=== PATIENT | male | born 1935 | race Caucasian/White ===

== ENCOUNTER → 2018-04-04 | Outpatient (CLI) | payer OTHER, MEDICARE | LOC: MRI 09:05 | DX: S46.912D Strain of unspecified muscle, fascia and tendon at shoulder and upper arm level, left arm, subsequent encounter (principal); K76.0 Fatty (change of) liver, not elsewhere classified; M25.411 Effusion, right shoulder ==

== ENCOUNTER 2021-02-28 12:00 | Inpatient (IN) | payer OTHER, MEDICARE ==
[~2021-02-28] VITALS: Ht 180.3 cm; Wt 70.1 kg
--- NOTE | ~2021-02-28 | EMS ---
[address] [address] EMS Patient Care Report Name: STEPHANIE LIMON Room #: 170-4 ADM IN M.R.#: [id number] Admission: 02/28/21 Attend Phys: Bhavya Gibson MD Discharge: Date of : 37 Report #: [id number] THIS REPORT FOR: //name// Report Transmitted: 02/28/2021 15:32 EMS Care Summary [place], [place]/[facility] Incident [id number] @ 02/28/2021 11:10 Incident Location [address] [place], [place] [id number] Patient STEHPANIE LIMON Male, 85 Years 1935 Patient Address [address] [place], [place] [id number] Patient History Stroke/CVA,Back Surgery, Patient Allergies No known allergies, Patient Medications Atorvastatin, Carvedilol, Pradaxa, Vitamin D, Acetaminophen, Tamsulosin, Chief Complaint BACK PAIN Disposition Transported No Lights/[place] Dispatch Reason Back Pain (Non-Traumatic) Transported To [facility] Narrative M30 RESPONDED TO A NON EMERGENCY BACK PAIN. M30 ARRIVED ON SCENE TO FIND PT SITTING UP IN HIS BED. PT WAS COMPLAINING OF LOWER BACK PAIN THAT HAD BEEN OFF AND ON FOR TWO WEEKS. PT STATED HE WOULD LIKE TO GET TRANSPORTED TO [facility] FOR PAIN MANAGEMENT. PT WAS ASSESSED AND DEEMED BLS. PT WAS ASSISTED IN [address] [address] EMS Patient Care Report Name: STEPHANIE LIMON Room #: 170-4 ADM IN M.R.#: [id number] Admission: 02/28/21 Attend Phys: Bhavya Gibson MD Discharge: Date of : 37 Report #: [id number] WALKING TO [facility]ER [facility]. PT WAS ASSISTED ONTO STRETCHER AND SECURED W/ SEABELTS AND HANDRAILS UP. PT WAS TRANSFERED INTO AMBULANCE. PT WAS REASSESSED WITH NO CHANGES. DURING TRANSPORT [facility] [place] [place] HIGH VOLUME STATUS FROM [facility]. DESTINATION WAS CHANGED TO [facility] BY PTS CHOICE. PT WAS REASSESED DURING TRANSPORT WITH NO CHANGES. PT WAS UNLOADED SECURE TO THE STRETCHER AND TRANSFERED INTO HOSPITAL. PT WAS LIFTED AND MOVED ONTO BED IN ER #4 AND LEFT SECURED TO BED WITH HANDRAILS UP IN A POSITION OF COMFORT. PT WAS RECIEVED BY [facility] NURSING STAFF. Initial Vitals @11:51P: 54,R: 18,BP: 154/74,Pain: 4/10,GCS: 15,CO: 1,SpO2: 99,Revised Trauma: 12, @11:42P: 54,R: 16,BP: 131/66,Pain: 4/10,GCS: 15,SpO2: 98,Revised Trauma: 12, Assessments @11:51MENTAL:No Abnormalities,SKIN:No Abnormalities,HEENT:Head/Face: No Abnormalities,Eyes: No Abnormalities,Neck/Airway: No Abnormalities,LUNG SOUNDS:General: No Abnormalities,Left Upper: No Abnormalities,Right Upper: No Abnormalities,Left Lower: No Abnormalities,Right Lower: No Abnormalities,ABDOMEN:General: No Abnormalities,Left Upper: No Abnormalities,Right Upper: No Abnormalities,Left Lower: No Abnormalities,Right Lower: No Abnormalities,PELVIS//GI:No Abnormalities,EXTREMITIES:Left Arm: No Abnormalities,Right Arm: No Abnormalities,Left Leg: No Abnormalities,Right Leg: No Abnormalities,PULSE:NEURO:No Abnormalities, Impression Back Pain Procedures @11:50ALS AssessmentSucceeded@11:50BLS AssessmentResponse: Unchanged Timeline 11:05,Call Received 11:05,Dispatch Notified 11:10,Dispatched 11:12,En Route 11:31,On Scene 11:32,At Patient 11:42,BP: 131/66 M,PULSE: 54,RR: 16 R,SPO2: 98 Ox,ETCO2: ,BG: ,PAIN: 4,GCS: 15, 11:45,Depart Scene 11:50,ALS Assessment,Succeeded, 11:50,BLS Assessment,Response: Unchanged 11:51,BP: 154/74 M,PULSE: 54,RR: 18 R,SPO2: 99 Ox,ETCO2: ,BG: ,PAIN: 4,GCS: 15, 11:54,At Destination 12:17,Call Closed [facility] [address] [place] [address] EMS Patient Care Report Name: STEPHANIE LIMON Room #: 170-4 ADM IN M.R.#: [id number] Admission: 02/28/21 Attend Phys: Bhavya Gibson MD Discharge: Date of : 37 Report #: [id number] Disclaimer v1.1 Copyright [employer] This EMS Care Summary contains data elements from the applicable legal record (which may be displayed differently). It is designed to provide pertinent information for the following purposes: continuity of care, clinical quality, and state data reporting. The complete legal record is available to ED staff and administrators of the receiving hospital in [employer] Patient Tracker. All data is provided "as is."
[2021-02-28 12:00] VITALS: BP 161/67
[2021-02-28 15:25] LABS: MCH 29.7 pg (26.0-34.0); MCHC 33.2 g/dL (28.0-37.0); MCV 89.2 fL (80.0-100.0); RBC 4.38 mil/uL (4.50-6.00); RDW 14.2 % (10.5-14.5); WBC 8.9 thou/uL (4.0-11.0)
[2021-02-28 15:29] LABS: CALCIUM 9.1 mg/dL (8.5-10.1); CREATININE 1.2 mg/dL (0.7-1.3)
[2021-02-28 15:35] LABS: ALBUMIN 3.9 g/dL (3.4-5.0); TOTAL BILIRUBIN 0.6 mg/dL (0.2-1.0); TOTAL PROTEIN 7.2 g/dL (6.4-8.2)
[2021-02-28 18:04] VITALS: BP 148/93
[2021-02-28 18:37] VITALS: BP 167/61
[2021-02-28] MEDS ORDERED: PRADAXA150 MG PO (20:05)
[2021-02-28] MEDS ORDERED: CARVEDILOL12.5 MG PO (20:07)
[2021-02-28] MEDS ORDERED: VITAMIN D310 MC1 PO (20:08)
[2021-02-28] MEDS ORDERED: LIPITOR 40 MG T40 M1 PO (20:08)
[2021-02-28] MEDS ORDERED: SUPER THERAVIT1 EACH PO (20:09)
[2021-02-28] MEDS ORDERED: FISH OIL 1,001000 M2 PO (20:09)
[2021-02-28] MEDS ORDERED: TYLENOL325 MG PO (20:10)
--- NOTE | 2021-03-01 03:35 | NUR ---
PT ADMITTED AT THE START OF SHIFT. HE IS ALERT AND ORIENTED. INTRACTABLE BACK PAIN. FALL EDUCATION PROVIDED.URINAL PROVIDED. TYLENOL USED FOR PAIN WITH EFFECTIVENESS.
[2021-03-01 05:07] LABS: BASOPHILS 0.9 % (0.0-2.0); EOSINOPHILS 7.1 % (0.0-3.0); LYMPHOCYTES 23.8 % (24.0-44.0); MCH 29.8 pg (26.0-34.0); MCHC 33.4 g/dL (28.0-37.0); MCV 89.2 fL (80.0-100.0); MONOCYTES 9.9 % (1.0-8.0); PLATELET COUNT 250 thou/uL (150-400); POLYS 58.3 % (36.0-66.0); RBC 4.38 mil/uL (4.50-6.00); WBC 6.9 thou/uL (4.0-11.0)
[2021-03-01 05:22] LABS: CALCIUM 9.1 mg/dL (8.5-10.1); CREATININE 1.1 mg/dL (0.7-1.3); PHOSPHORUS 3.8 mg/dL (2.6-4.7); POTASSIUM 4.7 mmol/L (3.5-5.1)
[2021-03-01 07:08] VITALS: BP 152/71
[2021-03-01] MEDS ORDERED: TRAMADOL 50 MG50 MG PO (11:49)
--- NOTE | 2021-03-01 12:18 | NUR ---
ASSUMED PT CARE THIS AM. PT VSS, A&OX4. PATIENT ABLE TO MAKE NEEDS KNOWN. PATIENT REMAINS CONTINENT, AMBULATES WITH ASSIST TO THE BATHROOM. BACK PAIN REPORTED 4/10, PATIENT DENIED PAIN MEDICATION WHEN OFFERED. REPORTING NO NAUSEA, NUMBNESS, OR TINGLING AT THIS TIME. FALL PRECAUTIONS ARE IN PLACE. IV PATENT, SALINE LOCKED. ON ROOM AIR.
[2021-03-01 12:34] VITALS: BP 152/71
== END 2021-03-01 13:04 | disposition home or self-care (01) | DRG 552 ==
LOC: ER 12:00 → EROBS 15:24 → 4W 18:33
PROVIDERS: Nurse Practitioner Family; ADMIT Internal Medicine; ATTEND Internal Medicine
DX: M48.07 Spinal stenosis, lumbosacral region (principal); G89.29 Other chronic pain; E78.5 Hyperlipidemia, unspecified; N40.0 Benign prostatic hyperplasia without lower urinary tract symptoms; D64.9 Anemia, unspecified; M48.061 Spinal stenosis, lumbar region without neurogenic claudication; I10 Essential (primary) hypertension; Z87.891 Personal history of nicotine dependence; Z72.89 Other problems related to lifestyle; Z86.73 Personal history of transient ischemic attack (TIA), and cerebral infarction without residual deficits
CPT/HCPCS: 10040